=== PATIENT | male | born 1960 | race Caucasian/White ===

== ENCOUNTER 2017-09-20 19:21 | Emergency (ER) | payer OTHER ==
[~2017-09-20] VITALS: Ht 167.6 cm; Wt 83.9 kg
[~2017-09-20 19:21] MED LIST: ATORVASTATIN CA20 MG; LISINOPRIL1 GM
== END 2017-09-20 22:24 | disposition home or self-care (01) ==
LOC: ER 19:21
DX: R05 Cough (principal); R50.9 Fever, unspecified; B34.9 Viral infection, unspecified

== ENCOUNTER 2019-09-09 12:14 | Emergency (ER) | payer OTHER ==
[~2019-09-09] VITALS: Ht 167.6 cm; Wt 83.9 kg
[2019-09-09] MEDS ORDERED: ATORVASTATIN CA10 MG PO (12:31)
[2019-09-09] MEDS ORDERED: LISINOPRIL10 MG PO (12:32)
== END 2019-09-09 18:39 | disposition home or self-care (01) ==
LOC: ER 12:14
DX: A08.39 Other viral enteritis (principal)

== ENCOUNTER 2020-01-08 00:36 | Emergency (ER) | payer OTHER ==
[~2020-01-08] VITALS: Ht 167.6 cm; Wt 86.2 kg
[~2020-01-08 00:36] MED LIST changes: +ATORVASTATIN CA10 MG PO; +LISINOPRIL10 MG PO
[2020-01-08] MEDS ORDERED: PEPCID40 MG PO (06:42)
[2020-01-08] MEDS ORDERED: DUI500 PO (06:42)
[2020-01-08] MEDS ORDERED: LEVSIN/SL0.125 MG SL (06:42)
== END 2020-01-08 06:52 | disposition home or self-care (01) ==
LOC: ER 00:36
DX: R10.84 Generalized abdominal pain (principal)

== ENCOUNTER 2020-01-29 06:45 | Day surgery (SDC) | payer OTHER ==
[~2020-01-29 06:45] MED LIST changes: +DUI500 PO; +LEVSIN/SL0.125 MG SL; +PEPCID40 MG PO
== END 2020-01-29 12:18 | disposition home or self-care (01) ==
LOC: AMB-ENDOS 06:45 → ADM 13:30
PROVIDERS: ATTEND Surgery
DX: D12.2 Benign neoplasm of ascending colon (principal); K64.1 Second degree hemorrhoids; Z12.11 Encounter for screening for malignant neoplasm of colon; Z20.828 Contact with and (suspected) exposure to other viral communicable diseases

== ENCOUNTER → 2020-02-19 | Outpatient (CLI) | payer OTHER | END | disposition home or self-care (01) | LOC: NUCLEAR 07:47 | PROVIDERS: ATTEND Surgery | DX: R10.11 Right upper quadrant pain (principal); Z12.11 Encounter for screening for malignant neoplasm of colon | CPT/HCPCS: J2805; A9537; 78452 ==

== ENCOUNTER 2020-10-04 06:39 | Day surgery (SDC) | payer OTHER ==
[2020-10-04] MEDS ORDERED: PERCOCET 5-3251 EACH PO (10:12)
== END 2020-10-04 12:50 | disposition home or self-care (01) ==
LOC: CIR.AMB 06:39
PROVIDERS: ATTEND Surgery
DX: K82.8 Other specified diseases of gallbladder (principal); Z20.822 Contact with and (suspected) exposure to COVID-19